=== PATIENT | female | born 1995 | race Caucasian/White ===

== ENCOUNTER 2022-02-14 06:10 | Inpatient (IN) | payer OTHER ==
[2022-02-14] MEDS ORDERED: PROMETHAZINE HCL 25 MG/1 ML VIAL IVPUSH ONE (07:45)
[2022-02-14] MEDS ORDERED: ELECTROLYTE-148 SOLN 500 ML IV ONE (07:45)
[2022-02-14] MEDS ORDERED: CITRIC ACID/SODIUM CITRATE 30 ML UNIT-DOSE CUP PO ONE (07:45)
[2022-02-14] MEDS ORDERED: BUTORPHANOL TARTRATE 1 MG/ML VIAL IVPB PRN (07:45)
[2022-02-14] MEDS ORDERED: DINOPROSTONE 10 MG VAGINAL SUPPOSITORY VG ONE (07:48)
[2022-02-14 08:13] VITALS: BMI 29.8
[2022-02-14] MEDS: ELECTROLYTE-148 SOLN 1,000 ML IV SCH ×2 (08:15→13:28)
[2022-02-14] MEDS ORDERED: OXYTOCIN 30 UNITS in 0.9% NS 30 UNIT/500 ML INFUS.BAG IVPB SCH ×2 (21:30→23:45)
[2022-02-14] MEDS ORDERED: OXYTOCIN 30 UNITS in 0.9% NS 30 UNIT/500 ML INFUS.BAG IVPB ONE (21:35)
[2022-02-15] MEDS ORDERED: FENTANYL/BUPIVACAINE/NS/PF - PCEA - 50 ML DISP.SYRIN EP ONE ×5 (05:24→20:48)
[2022-02-15] MEDS: FENTANYL/BUPIVACAINE/NS/PF - PCEA - 50 ML DISP.SYRIN EP SCH ×4 (06:10→20:50)
[2022-02-15] MEDS ORDERED: NALOXONE HCL 0.4 MG/ML VIAL IVPUSH PRN (06:31)
[2022-02-15] MEDS ORDERED: BENZOCAINE 28 GM HEMORRHOIDAL OINTMENT TP PRN (08:08)
[2022-02-15] MEDS ORDERED: ACETAMINOPHEN 325 MG TABLET (FP) PO PRN ×2 (08:08→21:29)
[2022-02-15] MEDS ORDERED: BENZOCAINE 20% 57 GM BOTTLE TP PRN (08:08)
[2022-02-15] MEDS ORDERED: BISACODYL 10 MG SUPP.RECT RC PRN (08:08)
[2022-02-15] MEDS ORDERED: IBUPROFEN 600 MG TABLET (FP) PO PRN ×2 (08:08→21:29)
[2022-02-15] MEDS ORDERED: WITCH HAZEL 50% (TUCKS) 40 PAD/JAR PAD TP PRN (08:08)
[2022-02-15] MEDS ORDERED: oxyCODONE HCL 5 MG TABLET PO PRN (08:08)
[2022-02-15] MEDS ORDERED: METHYLERGONOVINE MALEATE 0.2 MG/1 ML AMP IM PRN ×2 (08:08→21:29)
[2022-02-15] MEDS ORDERED: OXYTOCIN 20 UNITS in 0.9% NS 20 UNIT/1,000 ML INFUS.BAG IV SCH (08:15)
[2022-02-15] MEDS ORDERED: PRENATAL VITAMINS W/ FOLIC ACID TABLET (FP) PO SCH (10:00)
[2022-02-15] MEDS ORDERED: FERROUS SO4 325 MG TABLET (FP) PO SCH (12:00)
[2022-02-15] MEDS ORDERED: ELECTROLYTE-148 SOLN 1,000 ML IV SCH (13:00)
[2022-02-15] MEDS ORDERED: BUPIVACAINE HCL/PF 0.25% (2.5MG/ML) 10 ML VIAL ONE (19:38)
[2022-02-15] MEDS ORDERED: SIMETHICONE 80 MG TAB.CHEW (FP) PO PRN (21:29)
[2022-02-15] MEDS ORDERED: SENNOSIDES/DOCUSATE COMBO (SENNA PLUS) TABLET (UD) PO PRN (21:29)
[2022-02-15] MEDS ORDERED: IBUPROFEN 800 MG/8 ML IJ IVPB PRN (21:29)
[2022-02-15] MEDS ORDERED: OXYTOCIN 20 UNITS in 0.9% NS 20 UNIT/1,000 ML INFUS.BAG IV ONE (22:14)
[2022-02-15] MEDS ORDERED: morphine SULFATE/PF 1 MG/2 ML (2cc Syringe - QUVA) ONE (22:15)
[2022-02-15] MEDS ORDERED: ceFAZolin SODIUM 1 GM VIAL ONE (22:16)
[2022-02-15] MEDS ORDERED: OXYTOCIN 10 UNITS/ML VIAL ONE (22:46)
[2022-02-15 23:09] LABS: CORD BASE EXCESS -2.9 mmol/L (0-2); CORD HCO3 23.2 mmHg (20-29); CORD PCO2 45.3 mmHg (30-78); CORD pH 7.328 (7.14-7.44)
[2022-02-15 23:11] LABS: CORD BASE EXCESS -3.8 mmol/L (0-2); CORD HCO3 23.9 mmHg (20-29); CORD PCO2 54.2 mmHg (30-78); CORD pH 7.263 (7.14-7.44)
[2022-02-15] MEDS: OXYTOCIN 20 UNITS in 0.9% NS 20 UNIT/1,000 ML INFUS.BAG IV SCH (23:39)
[2022-02-16] MEDS ORDERED: ONDANSETRON 4 MG/2 ML VIAL IVPUSH PRN (00:37)
[2022-02-16] MEDS: FERROUS SO4 325 MG TABLET (FP) PO SCH ×3 (01:27→21:15)
[2022-02-16] MEDS: CEFAZOLIN 1 GM in DEXTROSE 5%-WATER - 50 ML IVPB SCH ×3 (01:37→22:07)
[2022-02-16] MEDS: OXYTOCIN 20 UNITS in 0.9% NS 20 UNIT/1,000 ML INFUS.BAG IV SCH (07:51)
[2022-02-16 09:09] LABS: BASO % 0.5 % (0-2.0); EOS % 0.1 % (0-4.5); HEMATOCRIT 33.9 % (32.4-45.2); LYMPH % 8.3 % (8-40); MCH 28.1 pg (25.7-33.7); MCHC 32.3 g/dl (32.0-36.0); MEAN CELL VOLUME 86.8 fl (80-96); MONO % 8.6 % (3.8-10.2); NEUT % 82.5 % (42.8-82.8); PLATELET COUNT 197 10^3/uL (134-434); WHITE BLOOD COUNT 11.1 K/mm3 (4.0-10.0)
[2022-02-16] MEDS ORDERED: oxyCODONE HCL 5 MG TABLET PO PRN ×2 (09:30)
[2022-02-16] MEDS: PRENATAL VITAMINS W/ FOLIC ACID TABLET (FP) PO SCH (09:32)
[2022-02-16] MEDS ORDERED: ACETAMINOPHEN 1000 MG/100 ML BAG IVPB PRN (11:38)
[2022-02-16] MEDS ORDERED: ELECTROLYTE-148 SOLN 1,000 ML IV SCH (11:45)
[2022-02-16] MEDS ORDERED: CEFAZOLIN 1 GM in DEXTROSE 5%-WATER - 50 ML IVPB SCH (20:00)
[2022-02-16] MEDS ORDERED: BISACODYL 10 MG SUPP.RECT RC PRN (21:30)
[2022-02-16] MEDS ORDERED: SENNOSIDES/DOCUSATE COMBO (SENNA PLUS) TABLET (UD) PO PRN (22:00)
[2022-02-17] MEDS: PRENATAL VITAMINS W/ FOLIC ACID TABLET (FP) PO SCH (10:16)
[2022-02-17] MEDS: FERROUS SO4 325 MG TABLET (FP) PO SCH ×2 (10:16→21:37)
[2022-02-17] MEDS ORDERED: oxyCODONE HCL 5 MG TABLET PO PRN ×2 (10:20)
[2022-02-17] MEDS ORDERED: ACETAMINOPHEN 325 MG TABLET (FP) PO PRN (10:20)
[2022-02-17] MEDS: IBUPROFEN 600 MG TABLET (FP) PO PRN ×2 (10:37→21:37)
[2022-02-18 08:35] LABS: BASO % 0.4 % (0-2.0); EOS % 1.4 % (0-4.5); HEMATOCRIT 32.8 % (32.4-45.2); HEMOGLOBIN 10.7 GM/dL (10.7-15.3); LYMPH % 22.7 % (8-40); MCH 28.8 pg (25.7-33.7); MCHC 32.7 g/dl (32.0-36.0); MEAN CELL VOLUME 88.1 fl (80-96); MEAN PLT VOLUME 9.1 fl (7.5-11.1); MONO % 7.4 % (3.8-10.2); NEUT % 68.1 % (42.8-82.8); PLATELET COUNT 210 10^3/uL (134-434); RBC 3.73 M/mm3 (3.60-5.2); RDW 14.2 % (11.6-15.6); WHITE BLOOD COUNT 8.5 K/mm3 (4.0-10.0)
[2022-02-18] MEDS: FERROUS SO4 325 MG TABLET (FP) PO SCH (09:43)
[2022-02-18] MEDS: PRENATAL VITAMINS W/ FOLIC ACID TABLET (FP) PO SCH (09:43)
[2022-02-18] MEDS: IBUPROFEN 600 MG TABLET (FP) PO PRN (09:43)
[2022-02-18 10:08] VITALS: BP 99/64; PULSE 87; RESP 16; TEMP 97.6
== END 2022-02-18 11:59 | disposition home or self-care (01) | DRG 788 ==
LOC: JLDR 06:10 → J3W 02-16 00:30
PROVIDERS: ADMIT Obstetrics & Gynecology; ATTEND Obstetrics & Gynecology
PROC: 3E0P7VZ Introduction of Hormone into Female Reproductive, Via Natural or Artificial Opening (ICD-10-PCS; 2022-02-14)
PROC: 10D00Z1 Extraction of Products of Conception, Low, Open Approach (ICD-10-PCS; principal; 2022-02-15)
DX: O62.0 Primary inadequate contractions (principal); O69.81X0 Labor and delivery complicated by cord around neck, without compression, not applicable or unspecified; Z3A.40 40 weeks gestation of pregnancy; Z37.0 Single live birth
CPT/HCPCS: 36415; 36600; 82803; 85025; 88307-TC